=== PATIENT | male | born 1985 | race Caucasian/White ===

== ENCOUNTER 2019-01-04 14:49 | Observation (INO) ==
[2019-01-04] MEDS ORDERED: MORPHINE SULFATE 4 MG/1 ML IVP ONE (15:11)
[2019-01-04] MEDS ORDERED: ONDANSETRON 4 MG/2 ML VIAL IVP ONE (15:11)
[2019-01-04] MEDS ORDERED: ASPIRIN 81 MG (BABY) CHEWABLE TABLET PO ONE (15:11)
[2019-01-04 15:16] LABS: BASOPHILS # (AUTO) 0.01 10*3/UL; BASOPHILS % (AUTO) 0.1 % (0-1); EOSINOPHILS # (AUTO) 0 10*3/UL; EOSINOPHILS % (AUTO) 0 % (0-8); Hematocrit [HCT] 53.1 % (42.0-52.0); Hemoglobin [HGB] 17.2 g/dL (14.0-18.0); LYMPHOCYTES # (AUTO) 1.45 10*3/uL; MEAN CORPUSCULAR HGB CONC 32.4 g/dL (33-37); MEAN CORPUSCULAR VOLUME 85.1 FL (80-90); MEAN PLATELET VOLUME 10.8 FL (7.4-12.2); MONOCYTES # (AUTO) 0.87 10*3/UL (0.3-0.8); NEUTROPHILS # (AUTO) 12.18 10*3/UL; NEUTROPHILS % (AUTO) 83.5 % (50-80); RED BLOOD COUNT 6.24 10^6/uL (4.70-6.10)
[2019-01-04 15:18] LABS: PLATELET MORPHOLOGY COMMENT NORMAL MORPHOLOGY (NORM); RBC MORPHOLOGY COMMENT NORMAL MORPHOLOGY (NORM); WBC MORPHOLOGY COMMENT NORMAL MORPHOLOGY (NORM)
[2019-01-04 15:22] LABS: BLOOD UREA NITROGEN 20 mg/dL (7-22); BUN/CREATININE RATIO 16.66 (6-20); SERUM ALBUMIN 4.7 g/dL (3.5-4.8)
[2019-01-04] MEDS ORDERED: Sodium Chloride 0.9% 1,000 ML PRIMARY IV ONE ×2 (15:35→15:40)
[2019-01-04] MEDS ORDERED: CALCIUM CARBONATE 500 MG (TUMS) CHEWABLE TABLET PO PRN (16:59)
[2019-01-04] MEDS ORDERED: Ondansetron ODT Tab 4 MG TAB PO PRN (16:59)
[2019-01-04] MEDS ORDERED: LIDOCAINE W/ SODIUM BICARB 0.5 ML SYR SUBD PRN (16:59)
[2019-01-04] MEDS ORDERED: ACETAMINOPHEN 325 MG TABLET PO PRN (17:02)
[2019-01-04] MEDS ORDERED: NICOTINE 21 MG /DAY PATCH TRANSDERM PRN (17:04)
[2019-01-04] MEDS: Sodium Chloride 0.9% 1,000 ML PRIMARY IV SCH (19:59)
[2019-01-04] MEDS: HYDROmorphone 2 MG/1 ML IVP PRN (21:06)
[2019-01-04] MEDS ORDERED: ALBUTEROL SULFATE 2.5 MG/3 ML NEB PRN (22:15)
[2019-01-04] MEDS ORDERED: ALBUTEROL SULFATE 2.5 MG/3 ML NEB ONE (22:15)
[2019-01-04] MEDS ORDERED: PANTOPRAZOLE IV 40 MG VIAL IVP ONE (22:17)
[2019-01-04] MEDS ORDERED: ClonazePAM Tab 1 MG TABLET PO PRN (22:30)
[2019-01-05 00:21] LABS: AMPHETAMINE SCREEN NEGATIVE (NEG); CANNABINOID SCREEN,URINE NEGATIVE (NEG); COCAINE SCREEN NEGATIVE (NEG); METHADONE URINE SCREEN NEGATIVE (NEG); METHAMPHETAMINES SCREEN,URINE NEGATIVE (NEG); OPIATE SCREEN,URINE POSITIVE (NEG); URINE SAMPLE TYPE VOIDED SPECIMEN
[2019-01-05] MEDS: HYDROmorphone 2 MG/1 ML IVP PRN ×3 (00:31→09:19)
[2019-01-05 00:34] LABS: HIV ANTIBODY NEGATIVE (N); HIV-1 P24 ANTIGEN NEGATIVE (N)
[2019-01-05] MEDS ORDERED: Lidocaine Inj 1% 20 ML ONE (00:43)
[2019-01-05 01:48] LABS: APPEARANCE, CSF CLEAR (CLEAR); COLOR, CSF COLORLESS (COLOR)
[2019-01-05 05:58] LABS: CHOL/HDL RATIO 3.09 RATIO (0-4.0)
[2019-01-05] MEDS: Sodium Chloride 0.9% 1,000 ML PRIMARY IV SCH (05:58)
[2019-01-05] MEDS: ESCITALOPRAM 10 MG TABLET PO SCH (06:54)
[2019-01-05] MEDS: LISINOPRIL 10 MG TABLET PO SCH (09:14)
[2019-01-05] MEDS: PANTOPRAZOLE IV 40 MG VIAL IVP SCH (09:14)
[2019-01-05] MEDS ORDERED: Influenza 19-20 Vaccine (6mo+) 60 MCG/0.5 ML SYRINGE IM ONE (13:45)
[2019-01-05] MEDS ORDERED: fentaNYL Inj 100 MCG/2 ML VIAL ONE (15:25)
[2019-01-05] MEDS ORDERED: ZOLPIDEM 10 MG TABLET PO PRN (18:37)
[2019-01-06] MEDS: Sodium Chloride 0.9% 1,000 ML PRIMARY IV SCH ×2 (02:30→04:23)
[2019-01-06] MEDS ORDERED: LEVOTHYROXINE 50 MCG TABLET PO SCH (05:30)
[2019-01-06] MEDS: ESCITALOPRAM 10 MG TABLET PO SCH (07:36)
[2019-01-06] MEDS: LISINOPRIL 10 MG TABLET PO SCH (08:49)
[2019-01-06] MEDS: PANTOPRAZOLE IV 40 MG VIAL IVP SCH (08:50)
[2019-01-06] MEDS ORDERED: Influenza 19-20 Vaccine (6mo+) 60 MCG/0.5 ML SYRINGE IM ONE (08:54)
[2019-01-06 11:04] VITALS: BP 108/60; RESP 16; TEMP 97.7; O2SAT 95
[2019-01-08 14:26] LABS: HEPATITIS B SURFACE AG Negative (Negative)
[2019-01-09 12:16] LABS: THYROPEROXIDASE AB 0.3 IU/mL (<9.0)
[2019-01-09 12:59] LABS: THYROGLOBULIN AB <1.8 IU/mL (<4.0)
== END 2019-01-06 11:34 | disposition home or self-care (01) ==
LOC: ER 14:49 → MED/SURG 14:49
PROVIDERS: ADMIT Family Medicine; ATTEND Family Medicine